=== PATIENT | male | born 1945 | race American Indian/Alaskan Native ===

== ENCOUNTER 2017-11-06 15:09 | Emergency (ER) | payer MEDICARE, MEDICAID ==
[2017-11-06 15:10] VITALS: BMI 43.9
[2017-11-06] MEDS ORDERED: Oxycodone/Acetaminophen 5/325 mg Tab PO STA (15:49)
[2017-11-06] MEDS ORDERED: Oxycodone/Acetaminophen 5/325 mg Tab ONE (16:09)
--- NOTE | 2017-11-06 16:40 | ED PDOC ---
HPI: Back Time Seen by Provider: 11/06/17 15:30 Chief Complaint (Nursing): Back Pain Chief Complaint (Provider): back pain History Per: Patient History/Exam Limitations: no limitations Onset/Duration Of Symptoms: Other (a year) Current Symptoms Are (Timing): Still Present Quality Of Discomfort: "Pain" Additional Complaint(s): Patient reports pain in the lower back and neck pain, and left arm pain, beginning one year ago. Pain associated to chronic numbness to left arm. Patient has had numerous hospital visits regarding similar symptoms. States he does not go to PMD because "the PMD does not visit him in the hospital so he will not visit his PMD". He visits specialist for chronic pain, but wants to see specialist in [place] because he does not trust doctors in [place] and is waiting for insurance to approve. Otherwise: (-) paresthesias, (-) weakness , (-) acute bowel or bladder dysfunction, (-) fever, (-) trauma, (-) headache, ( -) chest pain, and (-) dizziness. Has history of prior back problem. PMD: No Family Provider Past Medical History Reviewed: Historical Data, Nursing Documentation, Vital Signs Vital Signs: Last Vital Signs Temp 98.2 F 11/06/17 15:17 Pulse 77 11/06/17 16:05 Resp 16 11/06/17 15:17 BP 142/109 H 11/06/17 16:05 Pulse Ox 98 11/06/17 15:17 - Medical History PMH: Bronchitis, Diabetes, HTN, Chronic Pain (back) Denies: Chronic Kidney Disease - Family History Family History: States: Unknown Family Hx - Immunization History Hx Tetanus Toxoid Vaccination: No Hx Influenza Vaccination: No Hx Pneumococcal Vaccination: No - Home Medications Home Medications: Ambulatory Orders Medication Instructions Recorded Metoprolol Succinate XL [Toprol XL] 1 tab PO DAILY #30 tab 03/16/17 Naproxen [Naprosyn] 500 mg PO BID PRN #14 tab 09/27/17 Ibuprofen [Motrin] 600 mg PO Q6 PRN #20 tab 10/29/17 - Allergies Allergies/Adverse Reactions: Allergies Allergy/AdvReac Type Severity Reaction Status Date / Time No Known Allergies Allergy Verified 11/06/17 15:17 Review of Systems ROS Statement: Except As Marked, All Systems Reviewed And Found Negative Constitutional: Negative for: Fever Cardiovascular: Negative for: Chest Pain Musculoskeletal: Positive for: Neck Pain, Arm Pain (left), Back Pain, Other ( numbness to left arm) Neurological: Negative for: Weakness, Headache, Dizziness Physical Exam - Reviewed Nursing Documentation Reviewed: Yes Vital Signs Reviewed: Yes - Physical Exam Comments: GENERAL APPEARANCE: Patient is awake, alert, oriented x 3, in no acute distress. SKIN: Warm, dry; (-) cyanosis. EYES: (-) conjunctival pallor. ENMT: Mucous membranes moist. NECK: (-) tenderness, (-) stiffness, (-) lymphadenopathy. CHEST AND RESPIRATORY: (-) rales, (-) rhonchi, (-) wheezes; breath sounds equal bilaterally. HEART AND CARDIOVASCULAR: (-) irregularity; (-) murmur, (-) gallop. ABDOMEN AND GI: Soft; (-) tenderness; (-) palpable mass. BACK: (-) paravertebral tenderness, (+) mild spasm, (-) direct bony tenderness , (-) deformity. Straight leg raising (-) bilaterally. EXTREMITIES: (-) deformity, (-) edema, (-) tenderness. Distal pulses good bilaterally to the UE. (+) Bilaterally aka. NEURO AND PSYCH: Mental status as above. Intact sensation bilaterally; normal strength in extension of the knees, plantar and dorsiflexion of the toes. DTRs symmetric. - ECG O2 Sat by Pulse Oximetry: 98 (RA) Pulse Ox Interpretation: Normal Medical Decision Making Medical Decision Making: Previous medical records reviewed, patient was seen in other [facility] ERs on 10/29/17 for shoulder pain and hand pain, XR b/l hands and XR L shoulder were performed and were (-), he was also seen on 10/01/17 for chronic body pain x 1 yrs, then was also evaluated on 09/27/17 for L shoulder pain, XR L shoulder was done and was (-). Time: 1549 Initial Plan: --Glucose, POC --Percocet 5/325mg 2 tabs --Cervical Spine AP & Lateral [RAD] --Reevaluation Patient blood level elevated. He has not been taking his blood pressure medication. Also does not know what medications he is supposed to take because "his family does not care about him" and is requesting finger dip. Finder stick: 79 Repeat blood pressure: 142/109 Heat rate: 77bpm Patient went to XR. While patient was in XR, he is requesting for XR of his L hand. Patient advised that he has already had XRs of his L shoulder and L hand and were normal. Patient started cursing at PA. XR C spine : FINDINGS: BONES: The C7 vertebral body is not included on this lateral projection. There is straightening of the cervical spine with loss of normal cervical lordosis. Vertebral alignment is normal. There is diffuse bone demineralization. There is no acute fracture or traumatic anterior listhesis. DISC SPACES: There is advanced degenerative disc disease in the lower cervical spine with large anterior osteophytes and reduced disc heights. SOFT TISSUES: Normal. No prevertebral soft tissue swelling. OTHER FINDINGS: None. IMPRESSION: Limited examination due to absence of AP and odontoid views and exclusion of C7 vertebral body. Allowing for this, no acute fracture or traumatic anterior listhesis. Advanced degenerative disc disease in the lower cervical spine with large anterior osteophytes and reduced disc heights. XR results d/w the patient. Based on history, exam and diagnostic results plan will be for patient follow- up. Patient advised that he must follow-up with his PMD regarding his elevated blood pressure and informed the dangers and complications (including heart attack and stroke) of not being compliant with his blood pressure medication. Advised to follow up with primary care physician or referral provided in 1-2 days without fail. Return to the emergency room at any time for any new or worsening symptoms. Patient states he fully agrees with and understands discharge instructions. States that he agrees with the plan and disposition. Verbalized and repeated discharge instructions and plan. I have given the patient opportunity to ask any additional questions. Scribe Attestation: Documented by Jurgen Rodrigues, acting as a scribe for Zoë Andrade PA-C Provider Scribe Attestation: All medical record entries made by the Scribe were at my direction and personally dictated by me. I have reviewed the chart and agree that the record accurately reflects my personal performance of the history, physical exam, medical decision making, and the department course for this patient. I have also personally directed, reviewed, and agree with the discharge instructions and disposition. Disposition - Clinical Impression Clinical Impression: Chronic neck pain - Patient ED Disposition Is Patient to be Admitted: No Counseled Patient/Family Regarding: Studies Performed, Diagnosis, Need For Followup - Disposition Referrals: Vance Araya III, MD [Staff Provider] - Disposition: Routine/Home Disposition Time: 18:00 Condition: STABLE Additional Instructions: Thank you for letting us take care of you today. You were treated for chronic neck pain. The emergency medical care you received today was directed at your acute symptoms. Return to the Emergency Department if your symptoms worsen, do not improve, or if you have any other problems. Please contact your doctor in 2 days for re-evaluation and follow up / or call one of the physicians/clinics you have been referred to that are listed on the Patient Visit Information form that is included in your discharge packet. Bring any paperwork you were given at discharge with you along with any medications you are taking to your follow up visit. Our treatment cannot replace ongoing medical care by a primary care provider (PCP) outside of the emergency department. Thank you for allowing the [email or web address] team to be part of your care today. If you had an X-Ray : A Radiologist will review the ED reading if any change in treatment is needed we will contact you. Instructions: Chronic Pain (DC) Forms: [employer] (Croatian)
--- NOTE | 2017-11-06 17:06 | RAD ---
PROCEDURE: Cervical Spine Radiographs. HISTORY: Pain. COMPARISON: None. FINDINGS: BONES: The C7 vertebral body is not included on this lateral projection. There is straightening of the cervical spine with loss of normal cervical lordosis. Vertebral alignment is normal. There is diffuse bone demineralization. There is no acute fracture or traumatic anterior listhesis. DISC SPACES: There is advanced degenerative disc disease in the lower cervical spine with large anterior osteophytes and reduced disc heights. SOFT TISSUES: Normal. No prevertebral soft tissue swelling. OTHER FINDINGS: None. IMPRESSION: Limited examination due to absence of AP and odontoid views and exclusion of C7 vertebral body. Allowing for this, no acute fracture or traumatic anterior listhesis. Advanced degenerative disc disease in the lower cervical spine with large anterior osteophytes and reduced disc heights.
[2017-11-06 21:10] VITALS: BP 171/94; PULSE 79; RESP 20; TEMP 98.7; O2SAT 97
== END 2017-11-06 20:20 | disposition home or self-care (01) ==
LOC: H.ER 15:09
DX: M54.2 Cervicalgia (principal); G89.29 Other chronic pain; E11.9 Type 2 diabetes mellitus without complications; I10 Essential (primary) hypertension